=== PATIENT | female | born 1995 | race Caucasian/White ===

== ENCOUNTER 2022-09-29 15:59 | Inpatient (IN) | payer MEDICAID, SELFPAY ==
[2022-09-29 16:04] VITALS: BP 141/69; PULSE 70; RESP 18; TEMP 37; O2SAT 100; BMI 18.8
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
[2022-09-29 16:33] LABS: Appearance Urine Cloudy; Color Urine Yellow; Glucose Urine UA Negative (Negative); Leukocyte Esterase Urine Trace (Negative); Nitrite Urine Negative (Negative); Specific Gravity - Urine 1.015 (1.005-1.025); UMIC TRIGGER UACC YES; Urine Blood Negative (Negative); Urine Ketones Negative (Negative); Urine Protein Negative (Neg-Trace)
[2022-09-29 16:33] LABS: MANUAL DIFF FLAG NO
[2022-09-29 16:34] LABS: Urine Pregnancy NEGATIVE (NEGATIVE)
[2022-09-29 16:35] LABS: Bacteria Urine None Seen (None Seen); Hyaline Casts Urine 0-2 /LPF (0-2); RBC Urine 0-2 /HPF (0-2); UPreg QC Valid YES; WBC Urine 0-5 /HPF (0-5)
[2022-09-29 16:37] LABS: Basophils Percent Auto 0.4 % (0-2); Eosinophils Absolute Auto 0.4 X10*3/uL (0.0-0.4); Eosinophils Percent Auto 4.6 % (0-4); Hematocrit 41.9 % (37.0-47.0); Hemoglobin 14.3 g/dl (12.0-16.0); Imm Gran Abs Auto 0.02 X10*3/uL (0.00-0.03); Imm Gran Pct Auto 0.3 % (0.0-0.4); Lymphocytes Absolute Auto 1.8 X10*3/uL (1.2-4.9); Lymphocytes Percent Auto 23.4 % (20-40); Mean Corpuscular HGB Conc 34.1 g/dl (31.0-35.0); Mean Corpuscular Hemoglobin 31.3 pg (27.0-33.0); Mean Corpuscular Volume 91.7 fL (80.0-98.0); Mean Platelet Volume 9.7 fL (9.4-12.3); Monocytes Absolute Auto 0.4 X10*3/uL (0.1-1.2); Monocytes Percent Auto 4.9 % (2-11); Neutrophils Percent Auto 66.4 % (45-73); Platelet Count 261 X10*3/uL (160-400); Red Blood Count 4.57 X10*6/uL (4.20-5.50); Red Cell Distribution Width 12.5 % (11.0-16.0); White Blood Count 7.6 X10*3/uL (4.8-10.8)
[2022-09-29 16:46] LABS: Amphetamine Screen Urine Not Detected (Not Detect); Barbiturates, Urine Not Detected (Not Detect); Benzodiazepines Screen Urine Not Detected (Not Detect); COVID-19 Test Negative (Negative); Cannabinoid Screen Urine POSITIVE (Not Detect); Cocaine Screen Urine Not Detected (Not Detect); Fentanyl, urine Not Detected (Not Detect); IDNOW Serial# BCCEAD1C; Opiate Screen Urine Not Detected (Not Detect); Phencyclidine Screen Urine Not Detected (Not Detect)
[2022-09-29 16:53] LABS: Anion Gap 11 (12-20); Blood Urea Nitrogen 12 mg/dL (9-16); Calcium 9.6 mg/dL (8.4-10.2); Carbon Dioxide 27 mmol/L (22-29); Chloride 110 mmol/L (96-108); Creatinine Clr Calc Pharmacy 96.8; Estimated Glomerular Filt Rate > 60; Ethanol < 10 mg/dL; Glucose Random 95 mg/dL (60-115); Potassium 4.5 mmol/L (3.3-5.1); Sodium 143 mmol/L (135-145)
--- NOTE | 2022-09-30 06:38 | PC.NURSE ---
Patient slept through the night, no distress observed/reported, behavior non concerning, VSS, patient is currently not on any home medication, disposition per [facility] is section 12 inpatient bed search for paranoia, will continue to monitor.
[2022-09-30 06:46] VITALS: BP 114/55; PULSE 70; RESP 15; TEMP 37.2; O2SAT 99
--- NOTE | 2022-09-30 07:30 | PHA.MEDREC ---
Pharmacy Consult ? Medication Reconciliation Pharmacy has completed the medication reconciliation. Reviewed med rec done by nursing (Narendra).
[2022-09-30 15:14] VITALS: BP 134/75; PULSE 78; TEMP 36.8; O2SAT 95
--- NOTE | 2022-09-30 15:51 | PC.ADMIT ---
pt is a 27 year old female who presented to [facility] ED with paranoia and delusions. pt tox screen was positive for THC. pt has a PMH of inpatient hospitaliazations. pt is currently homeless and [facility] hs removed her children from her. during admission, pt appears manic with impaired focus. pt is unable to answer most admission question and seeing to responding to internal stimuli and is staring into space. pt is not interested in admission. pt cried while filling out lunch menu. start treatment plan and promote safety plan.
[2022-09-30] MEDS: LORazepam 1 MG TABLET PO (20:14)
--- NOTE | 2022-09-30 20:39 | PC.NURSE ---
pt has a CIWA, but patient is manic and has psychosis.
[2022-10-01 07:54] LABS: Cholesterol 125 mg/dL; HDL Cholesterol 47 mg/dL; LDL Cholesterol Calculated 73 mg/dl; Triglycerides 25 mg/dL
[2022-10-01 08:23] LABS: Folate 7.5 ng/mL (> or = 4.0); Free T4 (Free Thyroxine) 1.01 ng/dL (0.71-1.85); Thyroid Stimulating Hormone 1.04 uIU/mL (0.32-4.0); Vitamin B12 470 pg/mL (200-900)
[2022-10-01 08:58] LABS: Estimated Average Glucose 88 mg/dL; Hemoglobin A1c % 4.7 %
[2022-10-01 09:50] VITALS: BP 140/74; PULSE 108; RESP 18; TEMP 36.7; O2SAT 98
[2022-10-01] MEDS: LORazepam 1 MG TABLET PO ×2 (11:11→23:55)
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
[2022-10-01 17:14] VITALS: BP 123/95; PULSE 98; TEMP 36.8; O2SAT 98
[2022-10-02 08:20] VITALS: BP 109/60; PULSE 99; TEMP 36.6; O2SAT 99
[2022-10-02 12:50] VITALS: BP 128/79; PULSE 109; RESP 18; O2SAT 97
--- NOTE | 2022-10-02 13:06 | P.PNPSI_ITS ---
Subjective Subjective Date of Service: 10/02/22 Reason For Visit: Psychosis Subjective Notes: Conditional Voluntary Interim History: I think I have had too many medicine trials. Reviewed precipitants to admission. States she is here to detox and get her life back on track. Identifies her goals as 1. to get a [place] and [place], 2. to get a job, funds to live-hoping to go to school for phlebotomy and 3. housing. Vague about why she left [facility] for [facility], she briefly discussed a relationship which she misjudged that has ended. Some confusion, disorganization noted in conversation today. Considering three day notice Medication Compliance: Intermittent Side effects from medications: No Attending Groups: Intermittent Review of Systems Acute medical concerns: No Medical Review of Systems: unchanged Mental Status Exam Mental Status Exam Patient Appearance: Fatigued and Disheveled Patient Orientation: Person and Place Level of Consciousness: Alert Patient Behavior: Guarded, Talkative, Avoidant and Good Eye Contact Mood Description: Withdrawn and Constricted Affect Description: Constricted Patient Cognition Impaired: No Ability to Follow Directions: Fair Speech Pattern: Spontaneous Speech and Long Pauses Memory Description: Episodic Impaired Hallucinations: Auditory (? denies) and Visual (? denies) Delusions: Paranoid Ideation and Present Perceptual Disturbances: Depersonalization and Derealization Thought Process: Goal Oriented Thought Content: positive for [place], positive for Circumstantial and positive for Suicidal Ideation (denies) Depressive Symptoms: Difficulty Concentrating Judgement: Fair Diagnostics Vital Signs (24Hr): Vital Signs - 24 hr 10/01/22 17:14 10/02/22 08:20 Temperature 98.2 F 97.9 F Pulse Rate 98 99 Blood Pressure 123/95 H 109/60 Pulse Oximetry 98 99 Oxygen Delivery Method Room Air BMI result Body Mass Index 18.8 Labs 09/29/22 16:29 09/29/22 16:29 Labs: Laboratory Results - last 48 hr 10/01/22 10/01/22 07:23 07:23 Estimat Average Glucose 88 Hemoglobin A1c % 4.7 Triglycerides 25 Cholesterol 125 LDL Cholesterol, Calc 73 HDL Cholesterol 47 Vitamin B12 470 Folate 7.5 TSH 1.04 Free T4 1.01 Medications Medications Current Medications Acetaminophen (Acetaminophen 325 Mg Tablet) 650 mg PO Q6H PRN PRN Reason: Headache/Pain Mild Scale (1-3) Al Hydroxide/Mg Hydroxide (Magnesium Hydrox/Alum Hydrox 30 Ml Oral.Susp) 30 ml PO Q6H PRN PRN Reason: Heartburn/Nausea Hydroxyzine HCl (Hydroxyzine Hcl 50 Mg Tablet) 50 mg PO Q6H PRN PRN Reason: Anxiety Lorazepam (Lorazepam 1 Mg Tablet) 1 mg PO Q4H PRN PRN Reason: Breakthrough alcohol withdrawa Stop: 10/04/22 12:35 Last Admin: 10/01/22 23:55 Dose: 1 mg Magnesium Hydroxide (Milk Of Magnesia 30 Ml Oral.Susp) 30 ml PO DAILY PRN PRN Reason: Constipation Olanzapine (Olanzapine Odt 10 Mg Tab.Rapdis) 5 mg TRANSLINGU TID PRN PRN Reason: agitation/psychosis Pharmacy Consult (Consult Rx Perform Med Rec) 1 each MISCELLANE ONCE PRN PRN Reason: Consult order Trazodone HCl (Trazodone Hcl 50 Mg Tablet) 50 mg PO BEDTIME MRX1 PRN PRN Reason: Insomnia Allergies Allergies Allergy/AdvReac Type Severity Reaction Status Date / Time iodine Allergy Unknown Verified 10/01/22 23:33 ketorolac [From Toradol] Allergy Unknown Unverified 10/01/22 23:32 cats Allergy Unknown Uncoded 10/01/22 23:33 eggs Allergy Unknown Uncoded 10/01/22 23:32 Assessment & Plan Assessment & Plan (1) Psychosis: Status: Acute Code(s): F29 - Unspecified psychosis not due to a substance or known physiological condition Plan - Admit to M5 - Collateral information. - Watch for ETOH/substance withdrawal. (Crisis report mentions patient was medicating anxiety with substances ) - Patient not agreeable to medications. - Diagnostic clarification. - Will give Ativan PRN anxiety and Zyprexa PRN agitation or psychosis. - Disposition planning. 10/02/22- Continues to decline medications. Support, Observe, [place] building attempts Collateral contact if she will allow. Patient educated on: therapeutic strategies Informed Consent: further education needed Reason for contiued inpatient stay Substantial Risk for: rapid decompensation Time Spent With Patient Time: Total time managing care of this patient today ____ minutes.
--- NOTE | 2022-10-02 13:51 | PC.NURSE ---
Discussed with Pt NRT Pt declines , stating that she is just a social smoker.
[2022-10-02 16:05] VITALS: BP 136/66; PULSE 116; TEMP 36.4
[2022-10-02] MEDS: LORazepam 1 MG TABLET PO (20:52)
[2022-10-02] MEDS: OLANZapine ODT 10 MG TAB.RAPDIS 5 MG TRANSLINGU (20:53)
[2022-10-03 09:18] VITALS: BP 102/54; PULSE 82; RESP 18; TEMP 36.8; O2SAT 98
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
[2022-10-03 19:25] VITALS: BP 126/76; PULSE 99; TEMP 36.6
[2022-10-03] MEDS: LORazepam 1 MG TABLET PO (19:49)
[2022-10-03] MEDS: OLANZapine ODT 10 MG TAB.RAPDIS 5 MG TRANSLINGU (19:50)
[2022-10-03] MEDS: Acetaminophen 325 MG TABLET 650 MG PO (22:04)
[2022-10-03] MEDS: traZODone HCL 50 MG TABLET PO (22:05)
[2022-10-03] MEDS: Nicotine Polacrilex 2 MG GUM BUCCAL (22:06)
[2022-10-04 10:06] VITALS: BP 128/66; PULSE 92; RESP 18; TEMP 36.6; O2SAT 99
--- NOTE | 2022-10-04 12:18 | HO.PSYCHPN ---
Subjective Subjective Date of Service: 10/04/22 Reason For Visit: Psychosis Subjective Notes: 3 Day Healthcare Proxy: No Guardianship: No Medical Problems Affecting Mental Status: No Interim History: Remains guarded, evasive, treatment resistant, refuses interventions. Will plan to discharge 10/06/22 with a return to [facility]. Discussed with pt current sx and reviewed what could be provided to help. Discussed that her brother is diagnosed with schizophrenia-asks if tw thought meds would help. We discussed the possible benefits of a trial- maybe at another time . I have my life to live. Team reports treatment resistance, some provocative behaviors and guarded, isolative stance with some lability at times. Medication Compliance: Intermittent Side effects from medications: No Attending Groups: Intermittent Review of Systems Acute medical concerns: No Medical Review of Systems: unchanged Mental Status Exam Mental Status Exam Patient Appearance: Fatigued and Disheveled Patient Orientation: Person and Place Level of Consciousness: Alert Patient Behavior: Guarded, Talkative, Avoidant and Good Eye Contact Mood Description: Withdrawn and Constricted Affect Description: Constricted Patient Cognition Impaired: No Ability to Follow Directions: Fair Speech Pattern: Spontaneous Speech and Long Pauses Memory Description: Episodic Impaired Hallucinations: Auditory (? denies) and Visual (? denies) Delusions: Paranoid Ideation and Present Perceptual Disturbances: Depersonalization and Derealization Thought Process: Goal Oriented Thought Content: positive for [place], positive for Circumstantial and positive for Suicidal Ideation (denies) Depressive Symptoms: Difficulty Concentrating Judgement: Fair Diagnostics Vital Signs (24Hr): Vital Signs - 24 hr 10/03/22 19:25 10/04/22 10:06 Temperature 97.9 F 97.8 F Pulse Rate 99 92 Respiratory Rate 18 Blood Pressure 126/76 128/66 Pulse Oximetry 99 Oxygen Delivery Method Room Air BMI result Body Mass Index 18.8 Labs 09/29/22 16:29 09/29/22 16:29 Medications Medications Current Medications Acetaminophen (Acetaminophen 325 Mg Tablet) 650 mg PO Q6H PRN PRN Reason: Headache/Pain Mild Scale (1-3) Last Admin: 10/03/22 22:04 Dose: 650 mg Al Hydroxide/Mg Hydroxide (Magnesium Hydrox/Alum Hydrox 30 Ml Oral.Susp) 30 ml PO Q6H PRN PRN Reason: Heartburn/Nausea Hydroxyzine HCl (Hydroxyzine Hcl 50 Mg Tablet) 50 mg PO Q6H PRN PRN Reason: Anxiety Lorazepam (Lorazepam 1 Mg Tablet) 1 mg PO Q4H PRN PRN Reason: Breakthrough alcohol withdrawa Stop: 10/04/22 12:35 Last Admin: 10/03/22 19:49 Dose: 1 mg Magnesium Hydroxide (Milk Of Magnesia 30 Ml Oral.Susp) 30 ml PO DAILY PRN PRN Reason: Constipation Nicotine Polacrilex (Nicotine Polacrilex 2 Mg Gum) 2 mg BUCCAL Q2H PRN PRN Reason: Nicotine Cravings Last Admin: 10/03/22 22:06 Dose: 2 mg Olanzapine (Olanzapine Odt 10 Mg Tab.Rapdis) 5 mg TRANSLINGU TID PRN PRN Reason: agitation/psychosis Last Admin: 10/03/22 19:50 Dose: 5 mg Pharmacy Consult (Consult Rx Perform Med Rec) 1 each MISCELLANE ONCE PRN PRN Reason: Consult order Trazodone HCl (Trazodone Hcl 50 Mg Tablet) 50 mg PO BEDTIME MRX1 PRN PRN Reason: Insomnia Last Admin: 10/03/22 22:05 Dose: 50 mg Allergies Allergies Allergy/AdvReac Type Severity Reaction Status Date / Time iodine Allergy Unknown Verified 10/01/22 23:33 ketorolac [From Toradol] Allergy Unknown Unverified 10/01/22 23:32 cats Allergy Unknown Uncoded 10/01/22 23:33 eggs Allergy Unknown Uncoded 10/01/22 23:32 Assessment & Plan Assessment & Plan (1) Psychosis: Status: Acute Code(s): F29 - Unspecified psychosis not due to a substance or known physiological condition Plan - Admit to M5 - Collateral information. - Watch for ETOH/substance withdrawal. (Crisis report mentions patient was medicating anxiety with substances ) - Patient not agreeable to medications. - Diagnostic clarification. - Will give Ativan PRN anxiety and Zyprexa PRN agitation or psychosis. - Disposition planning. 10/03/22- Three day notice. Working with pt around safe discharge planning. 10/04/22- Pt continues to decline treatment, although she is interacting more with team and is more visable in the milieu. Lack of trust appears to be a major issue. Patient educated on: therapeutic strategies Informed Consent: further education needed Reason for contiued inpatient stay Substantial Risk for: inability to function and rapid decompensation Time Spent With Patient Time: Total time managing care of this patient today ____ minutes.
[2022-10-04 18:00] VITALS: BP 108/60; PULSE 100; RESP 18; TEMP 36.7; O2SAT 98
[2022-10-04] MEDS: traZODone HCL 50 MG TABLET PO (20:27)
[2022-10-04] MEDS: OLANZapine ODT 10 MG TAB.RAPDIS 5 MG TRANSLINGU (20:29)
[2022-10-05 09:29] VITALS: BP 132/69; PULSE 99; RESP 18; TEMP 36.7; O2SAT 99
[2022-10-05 09:30] VITALS: BMI 20.7
--- NOTE | 2022-10-05 16:54 | P.PNPSI_ITS ---
Subjective Subjective Date of Service: 10/05/22 Reason For Visit: Psychosis Subjective Notes: 3 Day Interim History: Reports no sx of depression, anxiety, no SI, no HI. Ready to leave. Review with Dr. Felix of pt's insurance today Medication Compliance: No Side effects from medications: No Attending Groups: Intermittent Review of Systems Acute medical concerns: No Medical Review of Systems: unchanged Mental Status Exam Mental Status Exam Patient Appearance: Appropriate Patient Orientation: Person, Place, Time and Situation Level of Consciousness: Alert Patient Behavior: Talkative, Avoidant and Good Eye Contact Mood Description: Constricted Affect Description: Constricted Patient Cognition Impaired: No Ability to Follow Directions: Fair Speech Pattern: Spontaneous Speech Memory Description: Intact Perceptual Disturbances: Depersonalization and Derealization Thought Process: Goal Oriented Thought Content: positive for [place], positive for Circumstantial and positive for Suicidal Ideation (denies) Judgement: Good Diagnostics Vital Signs (24Hr): Vital Signs - 24 hr 10/04/22 18:00 10/05/22 09:29 Temperature 98.1 F 98.1 F Pulse Rate 100 99 Respiratory Rate 18 18 Blood Pressure 108/60 132/69 Pulse Oximetry 98 99 Oxygen Delivery Method Room Air Room Air BMI result Body Mass Index 20.7 Labs 09/29/22 16:29 09/29/22 16:29 Medications Medications Current Medications Acetaminophen (Acetaminophen 325 Mg Tablet) 650 mg PO Q6H PRN PRN Reason: Headache/Pain Mild Scale (1-3) Last Admin: 10/03/22 22:04 Dose: 650 mg Al Hydroxide/Mg Hydroxide (Magnesium Hydrox/Alum Hydrox 30 Ml Oral.Susp) 30 ml PO Q6H PRN PRN Reason: Heartburn/Nausea Hydroxyzine HCl (Hydroxyzine Hcl 50 Mg Tablet) 50 mg PO Q6H PRN PRN Reason: Anxiety Magnesium Hydroxide (Milk Of Magnesia 30 Ml Oral.Susp) 30 ml PO DAILY PRN PRN Reason: Constipation Nicotine Polacrilex (Nicotine Polacrilex 2 Mg Gum) 2 mg BUCCAL Q2H PRN PRN Reason: Nicotine Cravings Last Admin: 10/03/22 22:06 Dose: 2 mg Olanzapine (Olanzapine Odt 10 Mg Tab.Rapdis) 5 mg TRANSLINGU TID PRN PRN Reason: agitation/psychosis Last Admin: 10/04/22 20:29 Dose: 5 mg Pharmacy Consult (Consult Rx Perform Med Rec) 1 each MISCELLANE ONCE PRN PRN Reason: Consult order Trazodone HCl (Trazodone Hcl 50 Mg Tablet) 50 mg PO BEDTIME MRX1 PRN PRN Reason: Insomnia Last Admin: 10/04/22 20:27 Dose: 50 mg Allergies Allergies Allergy/AdvReac Type Severity Reaction Status Date / Time iodine Allergy Unknown Verified 10/01/22 23:33 ketorolac [From Toradol] Allergy Unknown Unverified 10/01/22 23:32 cats Allergy Unknown Uncoded 10/01/22 23:33 eggs Allergy Unknown Uncoded 10/01/22 23:32 Assessment & Plan Assessment & Plan (1) Psychosis: Status: Acute Code(s): F29 - Unspecified psychosis not due to a substance or known physiological condition Plan - Admit to M5 - Collateral information. - Watch for ETOH/substance withdrawal. (Crisis report mentions patient was medicating anxiety with substances ) - Patient not agreeable to medications. - Diagnostic clarification. - Will give Ativan PRN anxiety and Zyprexa PRN agitation or psychosis. - Disposition planning. 10/03/22- Three day notice. Working with pt around safe discharge planning. 10/04/22- Pt continues to decline treatment, although she is interacting more with team and is more visable in the milieu. Lack of trust appears to be a major issue. 10/05/22- Discharge 10/06/22. Patient educated on: therapeutic strategies Informed Consent: understands Reason for contiued inpatient stay Substantial Risk for: stable for discharge and rapid decompensation Time Spent With Patient Time: Total time managing care of this patient today ____ minutes.
[2022-10-05 17:43] VITALS: BP 104/88; PULSE 80; TEMP 36.6; O2SAT 98
[2022-10-05] MEDS: traZODone HCL 50 MG TABLET PO (19:56)
[2022-10-05] MEDS: OLANZapine ODT 10 MG TAB.RAPDIS 5 MG TRANSLINGU (19:56)
--- NOTE | 2022-10-05 20:25 | PC.NURSE ---
pt was ordered ibuprofen for a toothache, pt reports that takes ibuprofen at home with no issues.
[2022-10-06] MEDS: Acetaminophen 325 MG TABLET 650 MG PO (00:49)
[2022-10-06] MEDS: Ibuprofen 600 MG TABLET PO (00:49)
[2022-10-06 06:00] VITALS: BP 119/57; PULSE 82; RESP 16; TEMP 36.3; O2SAT 97
--- NOTE | 2022-11-11 18:12 | P.DS_ITS ---
DS: Providers Provider Date of Service: 10/06/22 Date of admission: 09/30/22 12:36 Date of discharge: 10/06/22 Primary care physician: Unknown Physician Admitting clinician: Dionte Troncoso Attending physician on admission: Dionte Troncoso Attending physician on discharge: Riki Perez Discharging clinician: Margaret Kimbrough DS: Diagnosis Discharge Diagnosis (1) Psychosis: Status: Resolved DS: Medications Discharge Medications Home Medications: Previous Rx's Medication Instructions Recorded buspirone 10 mg tablet 10 mg PO BID 30 days #60 tabs 10/27/22 olanzapine 5 mg tablet 5 mg PO BEDTIME 30 days #30 tabs 10/27/22 trazodone 50 mg tablet 50 mg PO BEDTIME 30 days #30 tabs 10/27/22 Mental Status Exam Mental Status Exam Patient Appearance: Appropriate Patient Orientation: Person, Place, Time and Situation Level of Consciousness: Alert Patient Behavior: Talkative, Avoidant and Good Eye Contact Mood Description: Constricted Affect Description: Constricted Patient Cognition Impaired: No Ability to Follow Directions: Fair Speech Pattern: Spontaneous Speech Memory Description: Intact Perceptual Disturbances: Depersonalization and Derealization Thought Process: Goal Oriented Thought Content: positive for [place], positive for Circumstantial and positive for Suicidal Ideation (denies) Judgement: Good DS: Summary Hospital Course Hospital Course: Admission to adult psychiatry with sx of psychosis, possibly substance induced. Pt cleared over the brief admission, declined medications and treatment, signed a three day notice and planned to [facility] where she was staying prior to admission Status at Discharge Functional status at discharge: independent ambulation Overall status at discharge: patient is progressing back to baseline Time Spent with Patient Time attestation: Total time managing care of this patient today ____ minutes. Time spent: Less than 30 minutes Discharge Plan Discharge Anticipated Discharge Date/Time: 10/06/22 12:27 Patient Disposition: Longterm Discharge Diagnosis: Rule out Substance Induced Psychosis Referrals: [facility] [Other] - 1 Week (Walk in if needed ) Discharge Medications: No Action trazodone 50 mg Tablet 50 mg PO BEDTIME 30 Days Qty: 30 0RF olanzapine 5 mg Tablet 5 mg PO BEDTIME 30 Days Qty: 30 0RF buspirone 10 mg Tablet 10 mg PO BID 30 Days Qty: 60 0RF Discharge Orders: Discharge Order (Routine); Ordered 10/06/22 Ordered By: Margaret Kimbrough Diet: Advance to usual diet Activity on Discharge: As tolerated Stand Alone Forms: Patient Portal Discharge page, Community Support Care Plan Goals: Mood and Behavior Stabilization Health Concerns: Mood and Behavior Stabilization Plan of Treatment: -Discharge on a three day notice -Declines medications and treatment -Return to [facility] with follow up from their team -As discussed, call/return if needed Assessment: Risk assessment at time of discharge:? Patient was interviewed prior to discharge and found to be fully oriented and without any SI or HI. Patient is n ot in imminent risk of harm to self or others and has a safety plan that includes presenting to the closest ER or calling 911 if feeling unsafe.? Patient has been observed closely by nursing and unit staff throughout admission; patient has not engaged in any behaviors that suggest dangerousness to self or others and has demonstrated appropriate behaviors and impulse control Discharge Date/Time: 10/06/22 11:29
== END 2022-10-06 11:29 | disposition home or self-care (01) | DRG 751 ==
LOC: HO.ED 09-30 11:58 → HO.PM5 09-30 12:48
PROVIDERS: Admitting Provider Psychiatry & Neurology Psychiatry; Emergency Provider Emergency Medicine Emergency Medical Services; Visit Provider Clinical Nurse Specialist Psychiatric/Mental Health, Adult
DX: F29 Unspecified psychosis not due to a substance or known physiological condition (principal); R45.851 Suicidal ideations; Z20.822 Contact with and (suspected) exposure to COVID-19
CPT/HCPCS: 36415; 80048; 80061; 80307; 81001; 81025; 82077; 82607; 82746; 83036; 84439; 84443; 85025; 87635; 99285

== ENCOUNTER 2022-10-20 17:22 | Inpatient (IN) | payer MEDICAID, SELFPAY ==
[2022-10-20 17:25] VITALS: BP 142/82; PULSE 62; O2SAT 100
[2022-10-20 17:37] VITALS: BP 114/76; PULSE 66; RESP 19; TEMP 37; O2SAT 98; BMI 24.1
--- NOTE | 2022-10-20 17:50 | ED.PSYCH ---
HPI - Psych General Chief Complaint: Psychiatric Symptoms Stated Complaint: Crisis/Section 12 Time Seen by Provider: 10/20/22 17:41 Source: EMS Mode of arrival: EMS Limitations: other (Patient answers I do not know ) History of Present Illness HPI Narrative: Patient comes to the emergency room via ambulance from [facility] the community. Patient was Section 12. According to the Section 12, patient has delusions, seems paranoid, risky behaviors. When I speak to the patient, patient states that she became anxious and started crying and some I called 911. Patient denies suicidal ideation, although earlier today, seems that she did admit to vague SI to her nurse Related Data Home Medications Medication Instructions Recorded Confirmed No Known Home Meds 09/30/22 09/30/22 Allergies Allergy/AdvReac Type Severity Reaction Status Date / Time iodine Allergy Unknown Verified 10/01/22 23:33 ketorolac [From Toradol] Allergy Unknown Unverified 10/01/22 23:32 cats Allergy Unknown Uncoded 10/01/22 23:33 eggs Allergy Unknown Uncoded 10/01/22 23:32 Review of Systems Review of Systems: Constitutional : No Weight loss, No Fever, No Chills, No Night Sweats, No Fatigue, No Malaise ENT/Mouth : No Hearing loss, No Ear Pain, No Nasal Congestion, No Sinus Pain, No Hoarseness, No sore throat, No Rhinorrhea, No Swallowing Difficulty Eyes: No Eye Pain, No Swelling, No Redness, No Foreign Body, No Discharge, No Vision Changes Cardiovascular : No Chest Pain, No SOB, No Dyspnea on Exertion, No Orthopnea, No Edema, No Palpitations Respiratory : No Cough, No Sputum, No Wheezing, No Smoke Exposure, No Dyspnea Gastrointestinal : No Nausea, No Vomiting, No Diarrhea, No Constipation, No abdominal Pain, No Hematochezia, No Melena Genitourinary : no irregular bleeding, No Dysuria, No Urinary Frequency, No Hematuria, No Urinary Incontinence, No Urgency, No Flank Pain, No Urinary Flow Changes, No Hesitancy Musculoskeletal : No joint pain, No Myalgias, No Joint Swelling Skin : No Skin Lesions, No rash Neuro : No Weakness, No Numbness, No Paresthesias, No Loss of Consciousness, No Dizziness, No Headache Psych : Dying of anxiety, vague SI, no HI Heme/Lymph: No Bruising, No Bleeding,No Lymphadenopathy Endocrine : No Polyuria, No Polydipsia, No Temperature Intolerance [facility] Past Medical History Medical History (Updated 10/20/22 @ 17:59 by Anneliese Saucedo MD) Psychosis Social History Social History Housing: Homeless Unable to assess alcohol history related to: Unable to respond Alcohol intake: current Alcohol intake frequency: holidays/special occasions only Patient Tobacco Use Status: Tobacco use Unknown Substance Use Type: Marijuana service: No Sexual orientation: Straight/Heterosexual Physical Exam Vital Signs: Vital Signs: Last Vital Signs Temp 98.6 F 10/20/22 17:37 Pulse 66 10/20/22 17:37 Resp 19 10/20/22 17:37 BP 114/76 10/20/22 17:37 Pulse Ox 98 10/20/22 17:37 O2 Del Method 10/20/22 17:37 BMI result Body Mass Index 24.1 Const: Other: Appearance: Alert. Oriented X3. No acute distress. Eyes: Pupils equal, round and reactive to light. ENT: Pharynx normal. Neck: Normal inspection. Neck supple. No lymph nodes noted. No crepitus CVS: Normal heart rate and rhythm. Pulses normal. Normal S1 and S2 Respiratory: No respiratory distress. Breath sounds normal. No Wheezing. No rales Abdomen: Soft and nontender. No rigidity. No distention. Skin: Skin warm and dry. Normal skin color. Normal skin turgor. Extremities: No lower extremity edema. No Lacerations. No Rash Neuro: Oriented X 3. No motor deficit. No sensory deficit. Moving all extremities. No slurred speech. CN 2 through 12 grossly intact Psych: calm, cooperative, very slow to respond, after a question, patient says [id number]... And takes her approximately 10 seconds to respond every question Course Course Course Narrative: -basic labs pending -care team consult pending -patient was sectioned 12 in the community -physician observation started at 17:55 Discharge Plan Discharge Clinical Impression: Acute psychosis Patient Disposition: Still a Patient Prescriptions: No Action No Known Home Meds
--- NOTE | 2022-10-20 18:05 | PC.NURSE ---
pt denies si, states she has paranoia, states she did have an si attempt by cutting over a year ago but denies si now, pt states she didn't have to urinate and couldn't give a sample but went to the bathroom and urinated right after saying that, dinner provided
[2022-10-20 18:20] LABS: COVID-19 Test Negative (Negative); IDNOW Serial# 08D9AD1C
[2022-10-20 19:31] LABS: Basophils Percent Auto 0.5 % (0-2); Eosinophils Absolute Auto 0.3 X10*3/uL (0.0-0.4); Eosinophils Percent Auto 5.4 % (0-4); Hematocrit 40.1 % (37.0-47.0); Hemoglobin 13.9 g/dl (12.0-16.0); Imm Gran Abs Auto 0.02 X10*3/uL (0.00-0.03); Imm Gran Pct Auto 0.4 % (0.0-0.4); Lymphocytes Absolute Auto 1.5 X10*3/uL (1.2-4.9); Lymphocytes Percent Auto 26.7 % (20-40); MANUAL DIFF FLAG NO; Mean Corpuscular HGB Conc 34.7 g/dl (31.0-35.0); Mean Corpuscular Hemoglobin 31.8 pg (27.0-33.0); Mean Corpuscular Volume 91.8 fL (80.0-98.0); Mean Platelet Volume 9.9 fL (9.4-12.3); Monocytes Absolute Auto 0.3 X10*3/uL (0.1-1.2); Monocytes Percent Auto 5.3 % (2-11); Neutrophils Absolute Auto 3.5 x10*3/uL (2.0-8.3); Neutrophils Percent Auto 61.7 % (45-73); Platelet Count 184 X10*3/uL (160-400); Red Blood Count 4.37 X10*6/uL (4.20-5.50); Red Cell Distribution Width 12.3 % (11.0-16.0); White Blood Count 5.7 X10*3/uL (4.8-10.8)
[2022-10-20 19:50] LABS: Alanine Aminotransferase 10 U/L (0-31); Albumin Level 4.2 g/dL (3.5-5.0); Alkaline Phosphatase 51 U/L (39-117); Anion Gap 11 (12-20); Aspartate Amino Transferase 13 U/L (5-31); Bilirubin Direct 0.2 mg/dL (0.0-0.5); Bilirubin Total 0.7 mg/dL (0.0-1.0); Blood Urea Nitrogen 6 mg/dL (9-16); Calcium 9.3 mg/dL (8.4-10.2); Carbon Dioxide 28 mmol/L (22-29); Chloride 107 mmol/L (96-108); Creatinine Clr Calc Pharmacy 89.4; Estimated Glomerular Filt Rate > 60; Ethanol < 10 mg/dL; Glucose Random 112 mg/dL (60-115); Potassium 4.1 mmol/L (3.3-5.1); Sodium 142 mmol/L (135-145); Total Protein 6.8 g/dL (6.5-8.0)
[2022-10-20 23:41] LABS: Appearance Urine Cloudy; Color Urine Yellow; Glucose Urine UA Negative (Negative); Leukocyte Esterase Urine Small (1+) (Negative); Nitrite Urine Negative (Negative); PH 8.5 (5.0-9.0); UMIC TRIGGER UA YES; Urine Blood Negative (Negative); Urine Ketones Negative (Negative); Urine Protein Negative (Neg-Trace)
[2022-10-20 23:42] LABS: UPreg QC Valid YES; Urine Pregnancy NEGATIVE (NEGATIVE)
[2022-10-20 23:49] LABS: Amphetamine Screen Urine Not Detected (Not Detect); Barbiturates, Urine Not Detected (Not Detect); Benzodiazepines Screen Urine Not Detected (Not Detect); Cannabinoid Screen Urine POSITIVE (Not Detect); Cocaine Screen Urine POSITIVE (Not Detect); Fentanyl, urine Not Detected (Not Detect); Opiate Screen Urine Not Detected (Not Detect); Phencyclidine Screen Urine Not Detected (Not Detect)
[2022-10-20 23:56] LABS: Bacteria Urine None Seen (None Seen); Hyaline Casts Urine 0-2 /LPF (0-2); RBC Urine 0-2 /HPF (0-2); Squamous Epithelial Cell Urine 0-2 /HPF (0-2); WBC Urine 0-5 /HPF (0-5)
[2022-10-21] MEDS: LORazepam 1 MG TABLET 2 MG PO (00:40)
[2022-10-21 01:08] VITALS: BP 117/83; PULSE 81; RESP 16; TEMP 37; O2SAT 99
--- NOTE | 2022-10-21 05:56 | PC.NURSE ---
Patient reported anxiety 01/13, Ativan 2 mg PO administered at 0040 with + effect, patient slept through the night, no distress observed/reported, med rec attempted/patient is currently not on any medication, patient was assessed by Zaira in the community with disposition is section 12 inpatient bed search, no behavior concerns at this time, thought content paranoid, VSS, will continue to monitor.
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
--- NOTE | 2022-10-21 18:05 | PC.NURSE ---
PT REFUSING TO TAKE ANY MEDICATIONS TODAY WHILE IN THE POD, CARE TEAM AWARE AND THEY ALSO OFFERED. VERY PARANOID AND DELUSIONAL AFTER SHE WOKE UP THIS AFTERNOON, PACING AND TALKING LOUDLY IN ROOM AND AT NURSES STATION. SHE IS SUPPOSED TO BE ADMITTED TO [facility] PER TAMMI FROM CARE TEAM.
[2022-10-21 19:17] VITALS: BP 106/68; PULSE 78; RESP 16; TEMP 36.6; O2SAT 97
[2022-10-21] MEDS: OLANZapine ODT 10 MG TAB.RAPDIS TRANSLINGU (23:14)
[2022-10-22 00:43] VITALS: BP 114/73; PULSE 73; RESP 17; TEMP 36.6; O2SAT 99
[2022-10-22] MEDS: LORazepam 1 MG TABLET 2 MG PO (00:58)
--- NOTE | 2022-10-22 06:13 | PC.NURSE ---
Patient slept through the night since 0130, PRN Olanzapine 10 mg administered at 2314 and Ativan 2 mg PO at 0058 delayed and + effect, refused her 2100 hours busper 10 mg, patient is accepted to M3 yesterday however admission was deferred due to increased acuity in M3, section 12 B signed by ED provider, patient will be admitted to M3 today, behavior non concerning, mood labile tearful at time, patient expressed lot worries surrounding her children, patient was found arguing with her family member on phone, VSS, will continue to monitor.
--- NOTE | 2022-10-22 09:27 | PC.NURSE ---
Pt sleeping, respirations even and unlabored
--- NOTE | 2022-10-22 11:32 | PC.NURSE ---
Possible admission to M3 this afternoon
--- NOTE | 2022-10-22 12:10 | MHC.CARE ---
MSU attempted today @ 12 PM, pt sleeping and requested to talk with CARE team later in the day.
--- NOTE | 2022-10-22 13:21 | PC.NURSE ---
Pt continues to sleep throughout the day
--- NOTE | 2022-10-22 15:00 | PC.NURSE ---
Attempted to medicate patient, pt states she does not know why she is taking medications. Education provided, pt still refusing medications. Requesting to speak with care team. Denies any si/hi at this time, stating she just feels tired.
[2022-10-22 19:20] VITALS: BP 142/72; PULSE 82; RESP 16; TEMP 37.1; O2SAT 98
--- NOTE | 2022-10-23 | ECG_ITS ---
Test Reason : med clearance Blood Pressure : / mmHG Vent. Rate : 062 BPM Atrial Rate : 062 BPM P-R Int : 182 ms QRS Dur : 090 ms QT Int : 424 ms P-R-T Axes : 074 079 072 degrees QTc Int : 430 ms Normal sinus rhythm Normal ECG No previous ECGs available Referred By: Anneliese Saucedo Electronically Signed By:SUNDAR ROSARIO MD
[2022-10-23] MEDS: OLANZapine ODT 10 MG TAB.RAPDIS TRANSLINGU (00:09)
--- NOTE | 2022-10-23 07:03 | PC.NURSE ---
assumed care of patient, pt resting comfortably bed, VSS, sec [address], bed search in progress
[2022-10-23 07:04] VITALS: BP 100/48; PULSE 63; RESP 16; TEMP 36.9; O2SAT 97
[2022-10-23] MEDS: busPIRone HCl 10 MG TABLET PO (07:45)
[2022-10-23] MEDS: ARIPiprazole 5 MG TABLET PO (07:45)
--- NOTE | 2022-10-23 13:39 | PC.NURSE ---
RN to RN report given to M3, plan for admission
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
--- NOTE | 2022-10-23 23:33 | PC.NURSE ---
Saadia is guarded, flat, withdrawn and suspicious. She requested Tylenol then refused to take it. she refused her HS medications but asked for Ativan when this communications writer told her there was no Ativan ordered but she could have Atarax she said fuck it I just wont take anything tonight she has been visible in the day room throughout the evening but she has poor eye contact and is not socializing with staff/peers. no aggression noted monitor for safety, continue plan of care
[2022-10-24] MEDS: Magnesium Hydrox/Alum Hydrox 30 ML ORAL.SUSP PO ×2 (03:51→22:26)
--- NOTE | 2022-10-24 03:53 | PC.NURSE ---
Saadia remains hyper-vigilant and declined multiple offers of medication for sleep and anxiety. patient has multiple somatic complaints. she c/o pain in her back and requested then refused tylenol, multiple requests for anti-anxiety medications followed be refusal of the medication. c/o not being able to feel her toes and stating that they are puffy and draining and that we are denying her medical care. this publications writer observed that patients foot and found no abnormalities. she states that she frequently has heartburn and takes prilosec at home. patient acccepted maalox but then stated that she didn't want any more incase she is allergic to it. thus far this shift she has not slept. monitor for safety, continue plan of care
[2022-10-24 09:42] VITALS: BP 112/77; PULSE 88; RESP 18; TEMP 36.7; O2SAT 98
[2022-10-24] MEDS: ARIPiprazole 5 MG TABLET PO (12:15)
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
--- NOTE | 2022-10-24 16:15 | PC.NURSE ---
Pt signed a 3day on 10/24, up on friday 10/27
[2022-10-24 20:20] VITALS: BP 134/73; PULSE 97; RESP 18; TEMP 36.6; O2SAT 98
[2022-10-24] MEDS: busPIRone HCl 10 MG TABLET PO (22:25)
[2022-10-25] MEDS: Acetaminophen 325 MG TABLET 650 MG PO (01:25)
--- NOTE | 2022-10-25 01:30 | PC.NURSE ---
Saadia is noted to be awake and restless she c/o a headache and body aches 4-5/10. she remains pleasant mildly dismissive. she asked if Ativan had been added to her list. She declined Atarax stating that had a bad reaction to it when I took it before when asked to explain the reaction she stated that she had a hard time waking up. continue to monitor, no behavioral concerns at this time
[2022-10-25] MEDS: traZODone HCL 50 MG TABLET PO ×2 (02:05→20:55)
[2022-10-25 06:00] VITALS: BP 132/78; PULSE 75; RESP 18; TEMP 36.6; O2SAT 98
[2022-10-25] MEDS: busPIRone HCl 10 MG TABLET PO ×2 (09:17→20:55)
[2022-10-25] MEDS: ARIPiprazole 5 MG TABLET PO ×2 (09:17→20:56)
--- NOTE | 2022-10-25 15:25 | P.PNPSI_ITS ---
Subjective Subjective Date of Service: 10/25/22 Reason For Visit: Psychosis Interim History: more organized and less bizarre than yesterday. still some periods of increased PIERRE, staring. tired this morning, poor sleep. agrees to change abilify to and to schedule trazodone 50 at HS. asking for MD sarah agrees to script while in hospital but pt aware she will not receive script at discharge. per staff, 3-day up sunday. RIS, giggling to self at nothing. poor sleep. Mental Status Exam Mental Status Exam Narrative: adequately dressed and groomed. generally cooperative. no PMA/PMR. speech nml rate, amount, loudness, tone. periodic increased latency with blank stares. th oughts more organized, logical. affect constricted, normo-intense, non-labile. no SI/SIBI/HI/AVH expressed. Diagnostics Vital Signs (24Hr): Vital Signs - 24 hr 10/24/22 20:20 10/25/22 06:00 Temperature 97.9 F 97.8 F Pulse Rate 97 75 Respiratory Rate 18 18 Blood Pressure 134/73 132/78 Pulse Oximetry 98 98 Oxygen Delivery Method Room Air Room Air BMI result Body Mass Index 24.1 Labs 10/20/22 19:22 10/20/22 19:22 Medications Medications Current Medications Acetaminophen (Acetaminophen 325 Mg Tablet) 650 mg PO Q6H PRN PRN Reason: Headache/Pain Mild Scale (1-3) Last Admin: 10/25/22 01:25 Dose: 650 mg Al Hydroxide/Mg Hydroxide (Magnesium Hydrox/Alum Hydrox 30 Ml Oral.Susp) 30 ml PO Q6H PRN PRN Reason: Heartburn/Nausea Last Admin: 10/24/22 22:26 Dose: 30 ml Aripiprazole (Aripiprazole 5 Mg Tablet) 5 mg PO BEDTIME GREGORIO Buspirone HCl (Buspirone Hcl 10 Mg Tablet) 10 mg PO BID GREGORIO Last Admin: 10/25/22 09:17 Dose: 10 mg Hydroxyzine HCl (Hydroxyzine Hcl 25 Mg Tablet) 25 mg PO Q6H PRN PRN Reason: Anxiety Lorazepam (Lorazepam 1 Mg Tablet) 1 mg PO Q4H PRN PRN Reason: severe anxiety Magnesium Hydroxide (Milk Of Magnesia 30 Ml Oral.Susp) 30 ml PO DAILY PRN PRN Reason: Constipation Olanzapine (Olanzapine Odt 10 Mg Tab.Rapdis) 10 mg TRANSLINGU QID PRN PRN Reason: agitation Last Admin: 10/23/22 00:09 Dose: 10 mg Trazodone HCl (Trazodone Hcl 50 Mg Tablet) 50 mg PO BEDTIME MRX1 PRN PRN Reason: Insomnia Last Admin: 10/25/22 02:05 Dose: 50 mg Trazodone HCl (Trazodone Hcl 50 Mg Tablet) 50 mg PO BEDTIME GREGORIO Allergies Allergies Allergy/AdvReac Type Severity Reaction Status Date / Time iodine Allergy Unknown Verified 10/01/22 23:33 ketorolac [From Toradol] Allergy Unknown Unverified 10/01/22 23:32 cats Allergy Unknown Uncoded 10/01/22 23:33 eggs Allergy Unknown Uncoded 10/01/22 23:32 Assessment & Plan Assessment & Plan (1) Psychosis: Status: Acute Code(s): F29 - Unspecified psychosis not due to a substance or known physiological condition Plan 10/24: trial of abilify 5 mg daily. 10/25: change abilify to HS to help with sleep, schedule trazodone 50 at HS for the same, add ativan 1 mg Q4H PRN severe anxiety NTE 2 does per 24H (with the understanding this is for in-hospital use only and she will not receive a script at discharge). 3-day notice matures sunday. Reason for contiued inpatient stay Substantial Risk for: inability to function and rapid decompensation Time Spent With Patient Time: Total time managing care of this patient today __25__ minutes.
[2022-10-25 16:56] VITALS: BP 114/65; PULSE 80; RESP 18; TEMP 36.8; O2SAT 98
[2022-10-25] MEDS: Milk of Magnesia 30 ML ORAL.SUSP PO (17:29)
[2022-10-25 18:00] VITALS: BP 112/70; PULSE 85; RESP 18; TEMP 36.7; O2SAT 99
--- NOTE | 2022-10-25 21:10 | PC.NURSE ---
Addendum entered by Nayely Travis RN 10/25/22 22:50: requested Ativan at 2250. stated that the shower did not help her feel better. She stated that :the semi-easy medium hard way isn't always easy but it's usually the right way Original Note: Saadia continues to isolate in her room or in common areas. at first she refused her VS and wanted to push back the time of medication administration. I'm trying to remain consistent and take them at the same time every day. this typewriter aligner informed the patient that when medications were administered on 10/24 it was at approximately the same time, she then accepted her medications. she did however hesitate and stare at the medications for several moments before taking them. she remains internally preoccupied with quiet intermittent self dialogue
[2022-10-25] MEDS: LORazepam 1 MG TABLET PO (22:48)
[2022-10-26] MEDS: traZODone HCL 50 MG TABLET PO ×2 (01:01→22:33)
[2022-10-26] MEDS: LORazepam 1 MG TABLET PO ×2 (03:28→16:07)
[2022-10-26 09:38] VITALS: BP 103/55; PULSE 78; RESP 16; TEMP 36.7; O2SAT 95
[2022-10-26] MEDS: busPIRone HCl 10 MG TABLET PO ×2 (09:38→22:33)
--- NOTE | 2022-10-26 14:29 | P.PNPSI_ITS ---
Subjective Subjective Date of Service: 10/26/22 Reason For Visit: Psychosis Interim History: sleepy, calm, cooperative. appears less distracted today than yesterday. wants to DC tomorrow. appears to have difficult time planning the departure, unsure where or when she is going, how she might get there. seen by SW twice today to help with planning, apparently little headway made. c/o menstrual cramps, poor sleep 2/2 uncomfortable bed. interested in DC of abilify and restart of anu nzapine. per staff, 3-day up tomorrow. c/o poor sleep. not attending groups. not tending to ADLs. refusing to talk to staff for 1:1 check-ins. awake until 0400 snacking, slept after 0400. Mental Status Exam Mental Status Exam Narrative: adequately dressed and groomed. generally cooperative. no PMA/PMR. speech nml rate, amount, loudness, tone. one brief period of increased latency with blank stares. thoughts more organized, logical. affect constricted, normo-intense, non-labile. mood fine. no SI/SIBI/HI/AVH. Diagnostics Vital Signs (24Hr): Vital Signs - 24 hr 10/25/22 16:56 10/25/22 18:00 10/26/22 09:38 Temperature 98.3 F 98.1 F 98.1 F Pulse Rate 80 85 78 Respiratory Rate 18 18 16 Blood Pressure 114/65 112/70 103/55 L Pulse Oximetry 98 99 95 Oxygen Delivery Method Room Air Room Air Room Air BMI result Body Mass Index 24.1 Labs 10/20/22 19:22 10/20/22 19:22 Medications Medications Current Medications Acetaminophen (Acetaminophen 325 Mg Tablet) 650 mg PO Q6H PRN PRN Reason: Headache/Pain Mild Scale (1-3) Last Admin: 10/25/22 01:25 Dose: 650 mg Al Hydroxide/Mg Hydroxide (Magnesium Hydrox/Alum Hydrox 30 Ml Oral.Susp) 30 ml PO Q6H PRN PRN Reason: Heartburn/Nausea Last Admin: 10/24/22 22:26 Dose: 30 ml Buspirone HCl (Buspirone Hcl 10 Mg Tablet) 10 mg PO BID GREGORIO Last Admin: 10/26/22 09:38 Dose: 10 mg Hydroxyzine HCl (Hydroxyzine Hcl 25 Mg Tablet) 25 mg PO Q6H PRN PRN Reason: Anxiety Ibuprofen (Ibuprofen 600 Mg Tablet) 600 mg PO Q6H PRN PRN Reason: menstrual cramps Lorazepam (Lorazepam 1 Mg Tablet) 1 mg PO Q4H PRN PRN Reason: severe anxiety Last Admin: 10/26/22 03:28 Dose: 1 mg Magnesium Hydroxide (Milk Of Magnesia 30 Ml Oral.Susp) 30 ml PO DAILY PRN PRN Reason: Constipation Last Admin: 10/25/22 17:29 Dose: 30 ml Olanzapine (Olanzapine Odt 10 Mg Tab.Rapdis) 10 mg TRANSLINGU QID PRN PRN Reason: agitation Last Admin: 10/23/22 00:09 Dose: 10 mg Olanzapine (Olanzapine 5 Mg Tablet) 5 mg PO BEDTIME GREGORIO Trazodone HCl (Trazodone Hcl 50 Mg Tablet) 50 mg PO BEDTIME MRX1 PRN PRN Reason: Insomnia Last Admin: 10/26/22 01:01 Dose: 50 mg Trazodone HCl (Trazodone Hcl 50 Mg Tablet) 50 mg PO BEDTIME GREGORIO Last Admin: 10/25/22 20:55 Dose: 50 mg Allergies Allergies Allergy/AdvReac Type Severity Reaction Status Date / Time iodine Allergy Unknown Verified 10/01/22 23:33 ketorolac [From Toradol] Allergy Unknown Unverified 10/01/22 23:32 cats Allergy Unknown Uncoded 10/01/22 23:33 eggs Allergy Unknown Uncoded 10/01/22 23:32 Assessment & Plan Assessment & Plan (1) Psychosis: Status: Acute Code(s): F29 - Unspecified psychosis not due to a substance or known physiological condition Plan 10/24: trial of abilify 5 mg daily. 10/25: change abilify to HS to help with sleep, schedule trazodone 50 at HS for the same, add ativan 1 mg Q4H PRN severe anxiety NTE 2 does per 24H (with the understanding this is for in-hospital use only and she will not receive a script at discharge). 3-day notice matures sunday. 10/26: DC [email or web address] out of question of akathisia, restart zyprexa at 5 QHS. start ibuprofen 600 mg PRNs for menstrual cramps. otherwise continue current mgmt. Reason for contiued inpatient stay Substantial Risk for: harm to self, inability to function and rapid decompensation Time Spent With Patient Time: Total time managing care of this patient today __25__ minutes.
[2022-10-26 21:00] VITALS: BP 119/68; PULSE 91; RESP 18; TEMP 37; O2SAT 97
[2022-10-26] MEDS: OLANZapine 5 MG TABLET PO (22:33)
[2022-10-26] MEDS: OLANZapine ODT 10 MG TAB.RAPDIS TRANSLINGU (22:34)
[2022-10-27] MEDS: busPIRone HCl 10 MG TABLET PO (08:50)
[2022-10-27 08:55] VITALS: BP 109/57; PULSE 72; RESP 16; TEMP 36.6; O2SAT 97
[2022-10-27] MEDS: LORazepam 1 MG TABLET PO (09:40)
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
== END 2022-10-27 11:35 | disposition home or self-care (01) | DRG 751 ==
LOC: HO.ED 18:35 → HO.PADLT16 10-23 14:16
PROVIDERS: Admitting Provider Psychiatry & Neurology Psychiatry; Emergency Provider Emergency Medicine; Visit Provider Psychiatry & Neurology Psychiatry
DX: F29 Unspecified psychosis not due to a substance or known physiological condition (principal); R45.851 Suicidal ideations; Z20.822 Contact with and (suspected) exposure to COVID-19; Z59.02 Unsheltered homelessness; Z79.899 Other long term (current) drug therapy
CPT/HCPCS: 80048; 80076; 80307; 81001; 81025; 82077; 85025; 87635; 93005; 99285